=== PATIENT | male | born 1980 | race Caucasian/White ===

== ENCOUNTER 2017-02-26 20:12 | Emergency (ER) | payer OTHER ==
[~2017-02-26] VITALS: Ht 182.9 cm; Wt 68.2 kg
[2017-02-26 20:20] VITALS: BP 142/87; PULSE 67; RESP 24; O2SAT 99
--- NOTE | 2017-02-26 21:42 | ED.REPORT ---
HPI-Dental/Mouth Prob Date of Service February 26, 2017 ED Provider: Kishor Melendez MD The patient is a healthy 37 year old male who presents to the ED with lower left -sided dental pain onset "months ago," worsening one week ago. The patient denies other symptoms. He has a dental appointment tomorrow morning. The patient has taken Ibuprofen 400mg and [id number] Naproxen with mild relief. Nursing Notes Stated Complaint: TOOTH PAIN Chief Complaint: Dental Nursing Notes Reviewed: Yes Allergies: Coded Allergies: No Known Allergies (Unverified , 02/26/17) General Time Seen by MD: 21:35 Chief Complaint Tooth pain Hx Obtained From: Patient Arrived By: Walk-in Onset Occurred: More than a week ago... ("Months," worsening one week ago) Symptom Duration: Since onset Location: : Tooth lower L bicuspid Quality: Painful Severity: Current: Moderate Severity: Maximum: Moderate Pertinent Negative: Relieved by nothing Recent Healthcare: No recent doctor visit Past Medical History Past Medical History None reported Past Surgical History None reported Smoking History Unknown if Ever Smoker Social History Other Social History: Good social support Ambulatory Status Independent Review of Systems Constitutional: Denies: Fever Ears / Nose / Throat: Reports: Toothache (Lower left-sided) Respiratory: Denies: Non-productive cough, Shortness of breath GI: Denies: Diarrhea, Vomiting Complete sys rev & neg: except as marked. Physical Exam Initial Vital Signs Vital Signs (First) Date Time Temp Pulse Resp B/P Pulse Ox O2 Delivery O2 Flow Rate FiO2 02/26/17 20:20 36.8 67 24 142/87 99 Room Air Initial VS: Reviewed Head / Eyes: Atraumatic, Normocephalic Respiratory: No respiratory distress Skin: Warm, Dry, No cyanosis Neurologic: Alert, Oriented, Nonfocal Psychiatric: Mood/affect normal, Behavior normal, Normal thought content ENT: Airway patent, Mucous membranes moist Dental / Gums: Positive: Dental abscess (In buccal gutter at the level of tooth #20), Tooth fracture (Posterior aspect of tooth #20) Neck: Supple, Full range of motion General/Constitutional: Awake, Alert Procedures Incision & Drainage Abscess Time: 21:48 Procedure Performed by: ED physician Consent / Setup / Site Prep: Consent from patient, Time-out performed, Hand hygiene observed, Stand sterile technique Skin Preparation Agent: Other (Topical Lidocaine) Local Anesthesia: Bupivacaine 0.5% (w/ epi) Incised Abscess with Scalpel: #11 Pus Drained: Medium, Purulent discharge Post-Procedure / Complications: No complications, Condition improved, Tolerated procedure well, Patient stable Re-Eval/Medical Decision Re-Evaluation/Progress : Time of Eval: 23:26 Patient Status: Condition improved, Pain improved Re-Evaluation/Progress Note: Patient is feeling much better. Discussed with patient diagnosis, and plan for discharge. Follow-up and return to the ER instructions given. Patient agrees with plan for care and all questions were addressed. Counseled Regarding: Diagnosis, Need for follow-up, When/why to return to ED Discharge & Departure Primary Impression: Dental abscess Additional Impression: Tooth fracture Encounter type: initial encounter Fracture type: closed Qualified Code: S02.5XXA - Fracture of tooth (traumatic), initial encounter for closed fracture Disposition: Home Discharge Condition All VS Reviewed: Yes Condition: Improved Patient Instructions: Dental Abscess (ED), Toothache (ED) Additional Instructions: Thank you for entrusting us with your care. Take the amoxicillin as prescribed. Use Ibuprofen 800mg every 8 hours as prescribed for moderate pain. Use hydrocodone/APAP every six hours as needed for severe pain. Do not drink alcohol, drive, or consume acetaminophen while taking the hydrocodone/APAP. Keep your dental appointment tomorrow morning. Return to the ER with any new or worsening symptoms. Referrals: NOPCP (PCP) Scribe Attestation Portions of this note were transcribed by Tomasa Chavez. I, Dr. Melendez, personally performed the history, physical exam, and medical decision-making; I reviewed and confirmed the accuracy of the information in the transcribed note. Signed by: Orville Brewer, 02/26/2017, 23:40 Kishor Melendez MD February 26, 2017 21:42 TOMASA CHAVEZ February 26, 2017 21:49
[2017-02-26] MEDS ORDERED: HYDROmorphone 1 mg/mL Inj IM ONE (21:55)
[2017-02-26 23:30] VITALS: BP 121/75; PULSE 65; RESP 20; O2SAT 97
[2017-02-26] MEDS ORDERED: _HYDROcodone/APAP 5-325 mg Tablet PO PRN (23:35)
[2017-02-27 00:07] VITALS: BP 121/75; PULSE 65; RESP 20; O2SAT 97
[2017-02-27] MEDS ORDERED: _Amoxicillin 500 mg Capsule PO SCH (08:30)
== END 2017-02-27 00:08 | disposition home or self-care (01) ==
LOC: SED 20:12
DX: S02.5XXA Fracture of tooth (traumatic), initial encounter for closed fracture (principal); X58.XXXA Exposure to other specified factors, initial encounter; Y93.9 Activity, unspecified; Y92.9 Unspecified place or not applicable; Y99.9 Unspecified external cause status
CPT/HCPCS: 40800; 96372; 99284; J1170; J1885